=== PATIENT | female | born 1955 | race Caucasian/White ===

== ENCOUNTER → 2016-04-28 | Outpatient (CLI) | payer BC ==
[~2016-04-28] MED LIST: ATOXIMETIN-B1 CAP PO; ESTRADIOL1 MG PO; LIPITOR 10MG10 MG PO; PRILOSEC2.5 MG/Pac PO; SYNTHROID0.125 MG PO; TRIAMTERENE/HCT1 TAB PO
== END ==
LOC: MC.RAD 10:34
DX: Z12.31 Encounter for screening mammogram for malignant neoplasm of breast (principal)

== ENCOUNTER → 2017-06-04 | Outpatient (CLI) | payer BC | LOC: MC.RAD 11:29 | DX: Z12.31 Encounter for screening mammogram for malignant neoplasm of breast (principal) ==

== ENCOUNTER → 2018-06-10 | Outpatient (CLI) | payer BC | LOC: MC.RAD 11:07 | DX: Z12.31 Encounter for screening mammogram for malignant neoplasm of breast (principal); N63.20 Unspecified lump in the left breast, unspecified quadrant ==

== ENCOUNTER → 2018-06-14 | Outpatient (CLI) | payer BC | LOC: MC.RAD 10:30 | DX: N60.02 Solitary cyst of left breast (principal) ==